=== PATIENT | male | born 1970 | race Caucasian/White ===

== ENCOUNTER 2016-07-17 17:38 | Emergency (ER) | payer OTHER ==
[2016-07-17 18:54] VITALS: BP 131/75
--- NOTE | 2016-07-17 19:39 | UC ---
HPI Febrile Illness - HPI Summary HPI Summary: felt ill just today. Fine yesterday. Today fever to 102, body aches, headache, chills, sores on back of scalp, pilonidal cyst starting to get irritated (one prior infection requiring drainage), canker sores in mouth, dry cough. Did get a flu shot, but is on immunosuppressants so is told it "may not work". He has RA. Feels very fatigued, total body aching and malaise - History of Current Complaint Chief Complaint: UCSkin Time Seen by Provider: 07/17/16 19:30 Hx Obtained From: Patient Onset/Duration: Started Hours Ago - 10 Timing: Constant Initial Severity: Mild Current Severity: Moderate Aggravating Factors: Nothing Alleviating Factors: Nothing Associated Signs and Symptoms: Arthralgia, Chills, Cough - dry, Headache, Myalgia - diffuse, Weakness - Risk Factors Pseudomonas Risk Factors: Negative - Allergy/Home Medications Allergies/Adverse Reactions: Allergies Allergy/AdvReac Type Severity Reaction Status Date / Time Iodine Allergy Difficulty Verified 07/17/16 18:41 Breathing Home Medications: Home Medications Atorvastatin* [Lipitor*] 20 mg PO DAILY 07/17/16 [History Confirmed 07/17/16] Cetirizine* [ZyrTEC*] 10 mg PO DAILY 07/17/16 [History Confirmed 07/17/16] Cholecalciferol [Vitamin D3] 2,000 unit PO DAILY 07/17/16 [History Confirmed ] Leflunomide (NF) [Arava (NF)] 10 mg PO DAILY 07/17/16 [History Confirmed ] Lisinopril TAB* [Prinivil TAB*] 5 mg PO DAILY 07/17/16 [History Confirmed ] Multiple Vitamin [Multivitamins] 1 cap PO DAILY 07/17/16 [History Confirmed ] Naproxen TAB* [Naprosyn TAB*] 500 mg PO BID 07/17/16 [History Confirmed 07/17/16 ] Secukinumab [Cosentyx] 300 mg SC MONTHLY 07/17/16 [History Confirmed 07/17/16] PMH/Surg Hx/FS Hx/Imm Hx Previously Healthy: No - RA, on immunosuppressants Endocrine/Hematology History: Reports: Hx Diabetes Cardiovascular History: Reports: Hx Hypertension Respiratory History: Denies: Hx Asthma, Hx Chronic Obstructive Pulmonary Disease (COPD) - Surgical History Surgery Procedure, Year, and Place: gastric sleeve 2015 Infectious Disease History: No Infectious Disease History: Denies: Traveled Outside the [place] in Last 30 Days - Family History Known Family History: Negative: Respiratory Disease, Blood Disorder - Social History Occupation: Employed Full-time Lives: With Family Alcohol Use: Rare Substance Use Type: Reports: None Smoking Status (MU): Former Smoker Review of Systems Constitutional: Fever - 102 Skin: Negative Eyes: Negative ENT: Other - mouth sores, "canker sores" Respiratory: Cough Cardiovascular: Negative Gastrointestinal: Negative Genitourinary: Negative Motor: Negative Neurovascular: Negative Musculoskeletal: Myalgia Neurological: Headache Psychological: Negative All Other Systems Reviewed And Are Negative: Yes Physical Exam Triage Information Reviewed: Yes Appearance: Well-Appearing, No Pain Distress, Well-Nourished Vital Signs: Initial Vital Signs Temp 99.1 F 07/17/16 18:48 Pulse 119 07/17/16 18:48 Resp 18 07/17/16 18:48 BP 131/75 07/17/16 18:48 Pulse Ox 99 07/17/16 18:48 Vital Signs Reviewed: Yes Eye Exam: Normal Eyes: Positive: Conjunctiva Clear ENT: Positive: Hearing grossly normal, Pharynx normal, TMs normal. Negative: Pharyngeal erythema, Nasal congestion, Trismus, Muffled/hoarse voice Dental: Positive: Other: - small canker sore left upper gum; no vesicular lesions Neck exam: Normal Respiratory Exam: Normal Respiratory: Positive: Lungs clear, Normal breath sounds, No respiratory distress, No accessory muscle use Cardiovascular Exam: Normal Musculoskeletal Exam: Normal Neurological Exam: Normal Neurological: Positive: Alert, Muscle Tone Normal Psychological Exam: Normal Skin Exam: Other - two small reddened areas in occipital areas, one on each side , one has a small pustule at base of hair. No vesicular lesions. In gluteal cleft, there is a very small, tender nodule at upper cleft. No surrounding fluctuance or redness. The width of the tender nodule is about 1/3". No drainage noted. Diagnostics - Laboratory Diagnostic Studies Completed/Ordered: flu neg Course/Dx - Diagnoses Clinic Provider Diagnoses: viral syndrome; small pilonidal cyst Discharge - Discharge Plan Condition: Stable Disposition: HOME Prescriptions: Sulfamethox/Trimethoprim DS* [Bactrim DS 800/160 TAB*] 1 tab PO BID #20 tab Patient Education Materials: Pilonidal Cyst (GEN), Viral Syndrome (ED) Referrals: Kennedy Farmer MD [Primary Care Provider] -
[2016-07-17] MEDS ORDERED: Sulfamethox/Trimethoprim DS 800/160* TAB PO ONE (20:27)
== END 2016-07-17 20:36 | disposition home or self-care (01) ==
LOC: UCCORT 17:38
DX: B34.9 Viral infection, unspecified (principal); L05.91 Pilonidal cyst without abscess; I10 Essential (primary) hypertension; M06.9 Rheumatoid arthritis, unspecified; Z87.891 Personal history of nicotine dependence; Z98.84 Bariatric surgery status; Z88.8 Allergy status to other drugs, medicaments and biological substances
CPT/HCPCS: 87502; 99212; A9270-GY; G0463

== ENCOUNTER 2017-12-02 18:14 | Emergency (ER) | payer OTHER ==
--- NOTE | 2017-12-02 18:49 | UC ---
UC General HPI - HPI Summary HPI Summary: 47 yo male presents with multiple complaints that all began suddenly this morning 1) Right lower back twitching that began first this morning without known injury. 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 2 weeks ago he began a new medication called Renflexis via infusion. Currently denies headache, dizziness, vision changes, weakness, SOB, or chest pain. - History of Current Complaint Stated Complaint: RT SIDED BODY PAIN Time Seen by Provider: 12/02/17 18:48 Hx Obtained From: Patient Onset/Duration: Sudden Onset Timing: Constant Onset Severity: Severe Current Severity: Severe Pain Intensity: 9 - Allergy/Home Medications Allergies/Adverse Reactions: Allergies Allergy/AdvReac Type Severity Reaction Status Date / Time Fish Containing Products Allergy Hives Verified 12/02/17 18:49 iodine Allergy Difficulty Verified 12/02/17 18:44 Breathing Home Medications: Home Medications Cholecalciferol TAB* [Vitamin D TAB*] 2,000 units PO DAILY 12/02/17 [History Confirmed 12/02/17] Fexofenadine (NF) [Teodora 180 (NF)] 180 mg PO DAILY 12/02/17 [History Confirmed 12/02/17] Infliximab-Abda [Renflexis] 100 mg IV Q14D 12/02/17 [History Confirmed 12/02/17] Metoprolol Succinate XL TAB* [Toprol XL TAB*] 50 mg PO DAILY 12/02/17 [History Confirmed 12/02/17] metFORMIN* [Glucophage 500 MG TAB *] 500 mg PO BID 12/02/17 [History Confirmed 12/02/17] PMH/Surg Hx/FS Hx/Imm Hx - Additional Past Medical History Additional PMH: psoriatic arthritis DM2 HTN - Surgical History Surgical History: Yes Surgery Procedure, Year, and Place: gastric sleeve 2014 - Family History Known Family History: Positive: None Negative: Respiratory Disease, Blood Disorder - Social History Occupation: Employed Full-time Lives: With Family Alcohol Use: Rare Substance Use Type: None Smoking Status (MU): Former Smoker When Did the Patient Quit Smoking/Using Tobacco: 2009 Review of Systems Constitutional: Negative Skin: Negative Eyes: Negative ENT: Other - B/l jaw pain Respiratory: Negative Cardiovascular: Negative Gastrointestinal: Negative Genitourinary: Negative Motor: Negative Neurovascular: Negative Musculoskeletal: Other: - Right low back pain. Right biceps pain Neurological: Negative Psychological: Negative All Other Systems Reviewed And Are Negative: Yes Physical Exam - Summary Physical Exam Summary: GENERAL: WDWN. No pain distress. SKIN: No rashes, sores, lesions, or open wounds. HEENT: Head: AT/NC Eyes: EOMI. Conjunctiva clear without inflammation or discharge. Ears: Hearing grossly normal. TMs intact, no bulging, erythema, or edema. Nose: NTTP maxillary and frontal sinus. Throat: Posterior oropharynx without exudates, erythema, or tonsillar enlargement. Uvula midline. NECK: Supple. Nontender. No lymphadenopathy. CHEST: No accessory muscle use. Breathing comfortably and in no distress. CV: RRR. Without m/r/g. Pulses intact radial and ulnar. MSK: Right biceps held at 90deg. Unable to fully extend or flex due to pain. Strength 5/5 including dovetailer strength. ?bulge at mid bicep without definite "pop- eye muscle". No edema or obvious bony deformities. TTP B/L TMJ and with mouth opening half way. LEs: FROM and strength 5/5 NEURO: Alert. Sensations intact B/L UEs and LEs. PSYCH: Age appropriate behavior. Triage Information Reviewed: Yes Vital Signs: Vital Signs: Temp Pulse Resp BP Pulse Ox 97.6 F 119 18 162/87 99 12/02/17 18:44 12/02/17 18:44 12/02/17 18:44 12/02/17 18:44 12/02/17 18:44 Course/Dx - Course Course Of Treatment: I am unsure the cause of his multiple complaints. I feel they could be related to starting his new medication, but cannot attribute all of his symptoms to this without a further workup. Therefore, I have recommended that he go to the ER for further evaluation and likely labwork for his symptoms. Pt was agreeable to this plan and friend with him today will drive him. - Differential Dx - Multi-Symptom Provider Diagnoses: Right biceps pain. psoriatic arthritis Discharge - Sign-Out/Discharge Documenting (check all that apply): Discharge/Admit/Transfer - Discharge Plan Condition: Stable Disposition: HOME Referrals: Kennedy Farmer MD [Primary Care Provider] - Additional Instructions: Please go to the ER for further evaluation of your jaw pain, muscle pain, and sudden onset of symptoms - Billing Disposition and Condition Condition: STABLE Disposition: Home
[2017-12-02 18:52] VITALS: BP 162/87
== END 2017-12-02 19:08 | disposition home or self-care (01) ==
LOC: UCCORT 18:14
DX: M79.1 Myalgia (principal); I10 Essential (primary) hypertension; L40.50 Arthropathic psoriasis, unspecified; Z98.84 Bariatric surgery status; Z87.891 Personal history of nicotine dependence; E11.9 Type 2 diabetes mellitus without complications; Z79.84 Long term (current) use of oral hypoglycemic drugs
CPT/HCPCS: 99212; G0463

== ENCOUNTER 2019-06-11 08:30 | Emergency (ER) | payer OTHER ==
--- OUTSIDE RECORDS SUMMARY | 2019-06-11 08:40 | XMS REPORT | Continuity of Care Document ---
:1970 External Reference #:[id number] Author Name Kennedy Farmer MD (transmitted by agent of provider Cherrie Mir) Address [address] [place] [address] Care Team Providers Name Role Phone Kennedy Farmer MD - Family Care Team Information [facility] - Care Team Information [facility]id [phone] Endocrinology, Diabetes & Metabolism Mima Davila M.D. 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 Vitamin D deficiency Onset: 08/04/2014 Allergic rhinitis Onset: 08/04/2014 Type 2 diabetes mellitus Onset: 10/18/2011 Essential hypertension Onset: 10/18/2011 Hyperlipidemia Onset: 10/18/2011 Morbid obesity Onset: 10/18/2011 Tobacco user Onset: 10/18/2011 Psoriasis with arthropathy Onset: 08/28/2011 Social History Type Date Description Comments Sex Unknown ETOH Use Rarely consumes alcohol Tobacco Use Start: Unknown End: Unknown Patient is a former smoker quit 2009 Smoking Status Reviewed: 02/27/19 Patient is a former smoker quit 12/2009 Allergies, Adverse Reactions, Alerts Active Allergies Reaction Severity Comments Date Iodine 06/27/2018 Seafood 06/27/2018 Medications Active Medications SIG Qnty Indications Ordering Provider Date Daily Matt 1 by mouth every 90tabs Kennedy 06/02/2019 Multivitamin/Iron day MD Darian Tablets Jardiance 10 mg by mouth 30tabs E11.65 Kennedy 06/02/2019 10mg Tablets daily MD Darian Vitamin D3 Ultra 1 by mouth every 30caps Kennedy 02/26/2019 Strength day MD Darian 5000Unit Capsules Metformin HCL ER 2 bid 60tabs E11.9 Kennedy 11/30/2018 (Mod) MD Darian 500mg Tablets ER 24HR Trulicity use weekly, 1.5 2ml E11.9 Kennedy 10/21/2018 1.5mg/0.5ML mg MD Darian Solution Pen-Inject Montelukast Sodium 1 by mouth every 90tabs J30.9 Kennedy 10/21/2018 10mg day MD Darian Tablets Sildenafil Citrate use daily as 30tabs 09/29/2018 needed MD Darian 100mg Tablets Freestyle Lite Blood use as directed 1units 08/29/2018 Glucose Monitoring MD Darian System Device Freestyle Lite Test use 2 times a 50units 07/17/2018 day and as MD Darian Strips needed Fluconazole 1 by mouth every 5tabs Kennedy 07/02/2017 150mg day MD Darian Tablets Fluticasone 2 puffs each 16units Kennedy 01/03/2016 Propionate nare every in MD Darian 50mcg/Act the morning Suspension Metoprolol Tartrate 1 by mouth twice 60tabs I10 Kennedy 04/25/2015 a day MD Darian 50mg Tablets Atorvastatin Calcium 1 by mouth every 90tabs E78.5 Kennedy 12/29/2014 day MD Darian 20mg Tablets Naproxen 1 tab by mouth 60tabs L40.50 Kennedy 10/24/2011 500mg Tablets twice a day MD Darian Tylenol Extra 1-2 tabs by L40.50 Dianne, 10/24/2011 Strength mouth every 6 Jossy Mendez NP 500mg Tablets hours as needed Aspir-81 1 po qd 90tabs 564.00 Unknown 81mg Tablets Amlodipine Besylate 1 by mouth every Jose Roberto Dillon, day 10mg Tablets Clopidogrel Bisulfate 1 by mouth every Jose Roberto Dillon, day 75mg Tablets Irbesartan 1 by mouth every Jose Roberto Dillon, 300mg day MD Tablets Leflunomide take 1 tablet Mima Davila, 20mg every other day M.D. Tablets Immunizations CPT Code Status Date Vaccine Lot # [id number] Given 02/26/2013 Influenza Virus 3Yrs & Over 89711 Given 08/06/2012 Pneumonia Vaccine 99968 Given 04/04/2011 Influenza Virus 3Yrs & Over 33465 Given 04/19/2010 Influenza Virus 3Yrs & Over 29161 Given 11/15/2009 Tdap - Tetanus/Diptheria/Acellular Pertussis Vital Signs Date Vital Result Comment 06/02/2019 3:37pm Weight 309.00 lb BP Systolic 126 mmHg BP Diastolic 86 mmHg 02/26/2019 8:18am Weight 309.00 lb BP Systolic 132 mmHg BP Diastolic 72 mmHg Results Test Acquired Date Facility Test Result H/L Range Note Laboratory test 01/21/2019 [facility] PSA Screening 0.563 Normal 0-4.[address] ng/[place] [address] [phone] Comp Metabolic 01/21/2019 [facility] Sodium 136 mmol/L Normal 135-[address] [place] [address] [phone] Potassium 4.3 mmol/L Normal 3.5-5.0 Chloride 102 mmol/L Normal 101-111 Co2 Carbon Dioxide 23 mmol/L Normal 22-32 Anion Gap 11 mmol/L Normal 2-11 Glucose 329 mg/dL High 70-100 Blood Urea Nitrogen 10 mg/dL Normal 6-24 Creatinine 0.71 mg/dL Normal 0.67-1.17 BUN/Creatinine Ratio 14.1 Normal 8-20 Calcium 9.6 mg/dL Normal 8.6-10.3 Total Protein 6.9 g/dL Normal 6.4-8.9 Albumin 4.6 g/dL Normal 3.2-5.2 Globulin 2.3 g/dL Normal 2-4 Albumin/Globulin Ratio 2.0 Normal 1-3 Total Bilirubin 0.60 mg/dL Normal 0.2-1.0 Alkaline Phosphatase 70 U/L Normal 34-104 Alt 38 U/L Normal 7-52 Ast 20 U/L Normal 13-39 Egfr Non- 118.4 >60 Egfr 143.3 >60 2 CBC Auto 01/21/2019 [facility] White Blood 5.9 10^3/uL Normal 3.5-10.[address] [place] [address] [phone] Red Blood Count 4.87 10^6/uL Normal 4.18-5.48 Hemoglobin 14.4 g/dL Normal 14.0-18.0 Hematocrit 42 % Normal 42-52 Mean Corpuscular Volume 87 fL Normal 80-94 Mean Corpuscular Hemoglobin 30 pg Normal 27-31 Mean Corpuscular HGB Conc 34 g/dL Normal 31-36 Red Cell Distribution Width 14 % Normal 10-15 Platelet Count 186 10^3/uL Normal 150-450 Mean Platelet Volume 11.1 fL High 7.4-10.4 Abs Neutrophils 3.5 10^3/uL Normal 1.5-7.7 Abs Lymphocytes 1.7 10^3/uL Normal 1.0-4.8 Abs Monocytes 0.5 10^3/uL Normal 0-0.8 Abs Eosinophils 0.1 10^3/uL Normal 0-0.6 Abs Basophils 0.1 10^3/uL Normal 0-0.2 Abs Nucleated RBC 0.0 10^3/uL Granulocyte % 60.0 % Lymphocyte % 28.7 % Monocyte % 8.4 % Eosinophil % 2.0 % Basophil % 0.9 % Nucleated Red Blood Cells % 0.1 Laboratory test 01/21/2019 [facility] Hemoglobin A1c 8.2 % High 4.0-5.[address] (Glyco HGB) [place] [address] [phone] CRP High Sensitivity 1.15 mg/L <2.00 Homocysteine 8 mcmol/L 4 Lipid Profile 01/21/2019 [facility] Triglycerides 200 mg/dL 5 (Trig/Chol/HDL) [address] [place] [address] [phone] Cholesterol 233 mg/dL 6 HDL Cholesterol 46.4 mg/dL 7 LDL Cholesterol 147 mg/dL 8 1 Serum levels of PSA measured using the [email or web address] DXI Hybritech immunoassay should not be interpreted as absolute evidence of the presence or absence of disease. The PSA value should be used in conjunction with other pertinent clinical diagnostic procedures. A PSA value in the range of 0.1 to 0.6 ng/ml is indeterminate if being used as an indicator of recurrent or residual disease. The values obtained with different assay methods or kits cannot be used interchangeably. 2 Because ethnic data is not always readily available, this report includes an eGFR for both -Americans and non- Americans. The National Kidney Disease Education Program (NKDEP) does not endorse the use of the MDRD equation for patients that are not between the ages of 18 and 70, are , have extremes of body size, muscle mass, or nutritional status, or are non- or non-. According to the National Kidney Foundation, irrespective of diagnosis, the stage of the disease is based on the level of kidney function: Stage Description GFR(mL/min/1.73 m(2)) 1 Kidney damage with normal or decreased GFR 90 2 Kidney damage with mild decrease in GFR 60-89 3 Moderate decrease in GFR 30-59 4 Severe decrease in GFR 15-29 5 Kidney failure <15 (or dialysis) 3 Therapeutic target for the treatment of diabetes mellitus patients is <7% HBA1C, and in selective patients <6.0%. Please refer to [place] [employer] Association diabetic care guidelines for further information. 4 REFERENCE VALUE <=13 (Fasting) ADDITIONAL INFORMATION This test was developed and its performance characteristics determined by [facility] in a manner consistent with CLIA requirements. This test has not been cleared or approved by the U.S. Food and Drug Administration. Test Performed by: [address] [id number] 5 Desirable: <150 Borderline High: 150-199 High: 200-499 Very High: >500 6 Desirable: <200 Borderline High: 200-239 High: >239 7 Low: <40 Desirable: 40-60 High: >60 8 Desirable: <100 Near Optimal: 100-129 Borderline High: 130-159 High: 160-189 Very High: >189 Procedures Date Code Description Status 10/03/2018 [id number] Diabetic Retinal Eye Exam Completed Medical Devices Description No Information Available Encounters Type Date Location Provider Dx Diagnosis Office Visit 02/26/2019 [facility] Kennedy E29.1 Testicular 8:15a MD Darian hypofunction E11.65 Type 2 diabetes mellitus with hyperglycemia Office Visit 01/21/2019 8:15a [facility] Primary Kennedy Farmer Z00.01 Encounter for Care general adult medical exam w abnormal findings Z12.11 Encounter for screening for malignant neoplasm of colon Z12.5 Encounter for screening for malignant neoplasm of prostate E11.9 Type 2 diabetes mellitus without complications 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 B37.2 Candidiasis of skin and nail Assessments Date Code Description Provider 06/02/2019 E11.65 Type 2 diabetes mellitus with hyperglycemia Kennedy Farmer MD 02/26/2019 E29.1 Testicular hypofunction Kennedy Farmer MD 02/26/2019 E11.65 Type 2 diabetes mellitus with hyperglycemia Kennedy Farmer MD 01/21/2019 Z00.01 Encounter for general adult medical Kennedy Farmer MD examination with abnormal findings 01/21/2019 Z12.11 Encounter for screening for malignant Kennedy Farmer MD neoplasm of colon 01/21/2019 Z12.5 Encounter for screening for malignant Kennedy Farmer MD neoplasm of prostate 01/21/2019 E11.9 Type 2 diabetes mellitus without Kennedy Farmer MD complications 01/21/2019 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 with 01/21/2019 B37.2 Candidiasis of skin and nail Kennedy Farmer MD Plan of Treatment Future Appointment(s):10/07/2019 10:00 am - ROGELIO Alfred at [facility] Primary Care09/2019 9:00 am - Kennedy Farmer MD at [facility] Primary Care06/02/2019 - Kennedy Farmer MDE11.65 Type 2 diabetes mellitus with hyperglycemiaNew Medication:Jardiance 10 mg - 10 mg by mouth daily Functional Status Description No Information Available Mental Status Description No Information Available Referrals Refer to Dr Reason for Referral Status Appt Date [facility] Sent 09/14/2019 [address] [place] [address] [phone]
--- OUTSIDE RECORDS SUMMARY | 2019-06-11 08:40 | XMS REPORT | Continuity of Care Document ---
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 Medicine Problems Active Problems Provider Date Electrocardiogram abnormal Jose Roberto Dillon M.D., Onset: 04/02/2012 [facility] Hyperlipidemia Jose Roberto Dillon M.D., Onset: 11/07/2010 [facility] Type II diabetes mellitus uncontrolled Jose Roberto Dillon M.D., Onset: [facility] Essential hypertension Jose Roberto Dillon M.D., Onset: 11/07/2010 [facility] Social History Type Date Description Comments Sex Unknown Tobacco Use Start: Unknown End: Unknown Quit 12/2009 Smoking Status Reviewed: 04/14/19 Quit 12/2009 ETOH Use Rarely consumes alcohol Allergies, Adverse Reactions, Alerts Active Allergies Reaction Severity Comments Date Iodine 07/28/2010 Seafood 07/28/2010 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 Medications Active Medications SIG Qnty Indications Ordering Provider Date Atorvastatin Calcium 1 by mouth every 30tabs E78.5 Burnette, Estrella 10/03/2018 80mg day Evita, MSN, Tablets WORK ORDER CLERK Amlodipine Besylate Take 1 Tablet By 30tabs I25.10 Burnette, Estrella 10/03/2018 10mg Mouth Every Day YAW Jama, Tablets WORK ORDER CLERK I10 Irbesartan Take 1 Tablet By 90tabs I10 Burnette, Estrella 09/12/2018 300mg Tablets Mouth Every Day YAW Jama, WORK ORDER CLERK Clopidogrel Bisulfate Take 1 Tablet By 90tabs Burnette, Estrella 09/12/2018 75mg Mouth Every Day YAW Jama, WORK ORDER CLERK Tablets Kennedy Valverde, 1.5mg/0.5ML MD Solution Pen-Inject Prednisone start at 6 tabs by Unknown 10mg Tablets mouth every day and decrease by one tab each day until gone Orencia Once Every 4 Weeks Unknown 250mg Solution Rec Glipizide ER TK 1 T PO qd Unknown 10mg Tablets ER 24HR Fluconazole 1 by mouth once can Unknown 150mg Tablets repeat in 1 week Tramadol HCL 1 by mouth every 6 Unknown 50mg Tablets hour as needed pain Fexofenadine HCL 1 by mouth at night Estrella Burnette 180mg YAW Jama, WORK ORDER CLERK Tablets Leflunomide 1 by mouth every Unknown 20mg Tablets day Fluticasone Propionate 2 spray to each Unknown nare every day 50mcg/Act Suspension Viagra 1 tab by mouth as Unknown 100mg Tablets needed Metformin HCL 1 tab twice a day Unknown 1000mg Tablets Metoprolol Tartrate 1 by mouth twice a I10 Estrella Burnette 50mg day YAW Jama, WORK ORDER CLERK Tablets Naproxen 1 po bid 60tabs Unknown 500mg Tablets Aspirin 1 po qd Unknown 81mg Tablets Immunizations Description No Information Available Vital Signs Date Vital Result Comment 04/14/2019 7:33am BP Systolic Sitting Left Arm 150 mmHg BP Diastolic Sitting Left Arm 88 mmHg Heart Rate 87 /min Respiratory Rate 18 /min Height 75.50 inches 6'3.50" Weight 308.00 lb BMI (Body Mass Index) 38.0 kg/m2 BSA (Body Surface Area) 2.65 m2 [place] body weight in kilograms 90 kg O2 Saturation Level with Exercise 98 % 10/03/2018 11:09am BP Systolic Sitting Left Arm 132 mmHg BP Diastolic Sitting Left Arm 75 mmHg Heart Rate 80 /min Respiratory Rate 18 /min Height 75.50 inches 6'3.50" Weight 316.00 lb BMI (Body Mass Index) 39.0 kg/m2 BSA (Body Surface Area) 2.68 m2 [place] body weight in kilograms 90 kg O2 % BldC Oximetry 97 % Results Description No Information Available Procedures Description No Information Available Medical Devices Description No Information Available Encounters Type Date Location Provider Dx Diagnosis Office Visit 04/14/2019 Cardiology Office YomairaEstrella I25.10 Athscl heart 7:40a Evita, YAW, disease of [place] WORK ORDER CLERK coronary artery w/o ang pctrs I10 Essential (primary) hypertension E78.5 Hyperlipidemia, unspecified E11.65 Type 2 diabetes mellitus with hyperglycemia Assessments Date Code Description Provider 04/14/2019 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 No changes.I10 Essential (primary) hypertensionComments:Monitor.E78.5 Hyperlipidemia, unspecifiedComments:Will obtain the most recent blood work.E11.65 Type 2 diabetes mellitus with hyperglycemiaComments:Recent studies have shown CAD protection and improved HgA1c on Jardiance.AllFollow up:Follow up visit in six months. Functional Status Functional Condition Comment Date Status Independent with all ADL's Active Glasses Active Independent with all IADL's Active Mental Status Description No Information Available Referrals Description No Information Available
--- OUTSIDE RECORDS SUMMARY | 2019-06-11 08:40 | XMS REPORT | Summary of Care ---
:1970 Author Organization [facility] Address [address] [place] [id number] Care Team Providers Name Role Phone Kennedy Farmer MD Primary Care Provider Reason for Visit Reason Comments Follow-up Medication (Routine) Status Reason Specialty Diagnoses / Referred By Contact Referred To Procedures Contact Authorized Rheumatology Diagnoses Arthropathic psoriasis, unspecified Rheumatology Procedures [place] ABATACEPT INJECTION Medicine Private Practice [facility] [address] [place] [phone] Encounter Details Date Type Department Care Team Description 05/14/2019 Office Visit [facility] Rheumatology Ronald Davila MD Psoriatic arthritis (Primary Dx); [address] [place] [address] Psoriasis; [place] [address] [address] Floor High risk medication use [phone] [place] [address] [phone] Allergies Active Allergy Reactions Severity Noted Date Comments Cats 11/06/2012 Dogs 11/06/2012 Dust Mite Extract 11/06/2012 Iodinated Diagnostic Agents Other (See Comments) 11/02/2016 Pollen Extract 11/06/2012 Seafood Other (See Comments) 11/02/2016 documented as of this encounter (statuses as of 05/14/2019) Medications Medication Sig Dispensed Refills Start Date End Date Status lisinopril-hydrochlorot Take 1 tablet 0 Active hiazide by mouth daily. (PRINZIDE,ZESTORETIC) 20-25 MG per tablet metoprolol (LOPRESSOR) Take 50 mg by 0 Active 50 MG tablet mouth 2 (two) times daily. aspirin 81 MG tablet Take 81 mg by 0 Active mouth daily. Multiple Take 1 tablet 0 Active Vitamins-Minerals by mouth daily. (MULTIVITAMIN WITH MINERALS) tablet cetirizine (ZYRTEC) 10 Take 10 mg by 0 Active MG tablet mouth daily. fluticasone (VERAMYST) 2 sprays by 0 Active 27.5 MCG/SPRAY nasal Nasal route spray daily. metformin (GLUCOPHAGE) Take 1 tablet 60 tablet 11 03/10/2013 Active 1000 MG tablet by mouth 2 (two) times daily with meals. metformin (GLUCOPHAGE) TAKE ONE TABLET 60 tablet 0 01/04/2014 Active 1000 MG tablet BY MOUTH TWICE A DAY WITH MEALS fexofenadine (REJI) Take 180 mg by 0 Active 180 MG tablet mouth daily cyclobenzaprine 0 12/03/2017 Active (FLEXERIL) 10 MG tablet JANUMET XR 100-1000 MG TK 1 T PO QD 11 11/25/2017 Active TB24 Tofacitinib Citrate Take 11 mg by 30 tablet 5 05/29/2018 Active (XELJANZ XR) 11 MG TB24 mouth daily levocetirizine (XYZAL) Take 5 mg by 0 Active 5 MG tablet mouth every evening irbesartan (AVAPRO) 300 0 11/02/2018 Active MG tablet TRULICITY 1.5 MG/0.5ML 0 10/21/2018 Active injection pen 1.5 mg/0.5 mL clopidogrel (PLAVIX) 75 0 11/02/2018 Active MG tablet amlodipine (NORVASC) 10 0 11/02/2018 Active MG tablet atorvastatin (LIPITOR) 0 11/02/2018 Active 80 MG tablet sildenafil (REVATIO) 20 Take 20 mg by 0 Active MG tablet mouth as needed fluconazole (DIFLUCAN) Take 1 tablet 7 tablet 5 11/06/2018 Active 150 MG tablet by mouth once a week leflunomide (ARAVA) 20 TAKE 1 TABLET 30 tablet 3 04/20/2019 Active MG tabletIndications: BY MOUTH DAILY Psoriatic arthritis Etanercept 50 MG/ML Inject 50 mg 4 Syringe 5 05/14/2019 06/13/2019 Active Subcutaneous Solution into the skin Auto-injector every 7 (seven) days documented as of this encounter (statuses as of 05/14/2019) Active Problems Problem Noted Date High risk medication use 11/22/2016 Psoriasis 11/22/2016 Psoriatic arthritis 11/22/2016 Diabetes mellitus Obesity (BMI 30-39.9) Hypertension Hyperlipidemia LDL goal < 100 documented as of this encounter (statuses as of 05/14/2019) Social History Tobacco Use Types Packs/Day Years Used Date Former Smoker Cigarettes 2 20 Quit: 12/30/2009 Smokeless Tobacco: Never Used Tobacco Cessation: Counseling Given: No Comments: quit 2.5 years ago Alcohol Use Drinks/Week oz/Week Comments Yes occasional Sex Assigned at Date Recorded Not on file Job Start Date Occupation Industry Not on file Not on file Not on file Travel History Travel Start Travel End No recent travel history available. documented as of this encounter Last Filed Vital Signs Vital Sign Reading Time Taken Comments Blood Pressure 157/90 05/14/2019 10:08 AM EST Pulse 94 05/14/2019 10:08 AM EST Temperature 36.3 05/14/2019 10:08 AM EST C (97.3 F) Respiratory Rate 16 05/14/2019 10:08 AM EST Oxygen Saturation 95% 05/14/2019 10:08 AM EST Inhaled Oxygen Concentration - - Weight 140.6 kg (310 lb) 05/14/2019 10:08 AM EST Height 188 cm (6' 2") 05/14/2019 10:08 AM EST Body Mass Index 39.8 05/14/2019 10:08 AM EST documented in this encounter Progress Notes Ronald Davila MD - 05/14/2019 10:00 AM EST Subjective: Patient ID: Alhaji Michaud is a 49 y.o. male. HPI This is a 49-year-old white male with history of hypertension, high cholesterol , type 2 diabetes, psoriatic arthritis came in for follow up. I first time saw him on 11/22/2016 at which time he was referred for second opinion rheumatology consult. The patient has been diagnosed with psoriasis since age 14 to 15. The rash is located on both legs, arms, scalp, sometime to the point that bleeding. The patient was not on any medications. About 10 years ago the patient started to have arthritis, mainly at the knees, elbows and fingers. Initially tried sulfasalazine that did not work. He was on methotrexate, but developed fatigue and oral ulcer. That was discontinued. He tried Enbrel plus Arava that worked for 3 to 4 months and lost effect, and then switched to Humira plus Arava that worked for about 6 months. Then, he was on Remicade infusion for about 1 year. At that time, he felt great. Allthe psoriasis has been gone and arthritis has been gone, but over time, the Remicade lost its effectiveness as well. Then, he switched to Cimzia doubt which did not work and he also tried Simponi subcu and infusion. That over time also lost effectiveness. He tried Otezla oral medication which did not help with arthritis at all. In fact, he noticed some skin rashes coming back. Also tried Stelarawhich was not very effective for psoriatic arthritis. Basically, all the biologics control the skindisease now, but none of them really control arthritis completely. Currently, he is on Cosentyx 300mg subcu every 4 weeks. Initially did a loading dose, but he has been on the injection for 4 to 5 months or so, but he still has pain mainly at both elbows, MCP and DIP joint, left more than right andknee pain. He required naproxen as needed to help with the pain. In 2006 he had gastric sleeve surgery and lost about 100 pounds which helped with high blood pressure, diabetes really well. He continued to have chronic fatigue, but that seems also intermittent symptoms. He said he did see Dermatology, had a skin biopsy of the left arm, confirmed psoriasis. On 02/28/2017, the patient came in for follow up. Overall his psoriasis is control with Cosentyx 300 mg subcu every 4 weeks, but he still has arthralgia, swelling of fingers, MCP joint, elbows, and otherjoint. That seemed to get worse with damp weather or playing the guitar too much. He is taking naproxen 500 mg twice a day on the bad days and taking prednisone 10 mg, which did help. He continued Arava 10 mg daily. Because of his liver function, he tried to avoid a higher dose of Arava and Tylenol. I reviewed the labs with him. ALT 41. Otherwise CMP, CBC, ESR, LORENZO, rheumatoid factor, CCP antibodies, LORENZO specificities were all normal. On 07/04/2017, the patient came in for follow up. Overall psoriasis controlled with Cosentyx. Only has small spots on the legs, otherwise, no active skin rash. Arthritis also better. Still has some swelling of the hands, MCP joints. He played base guitar, noticed left hand, 4th digit, loss of strength. In between, he had a viral infection. He skipped 2 weeks of Cosentyx. Otherwise tolerated Cosentyx 300 mg subcu every 4 weeks. The patient continued patient continued leflunomide 10 mg daily, naproxen 500 mg twice a day, and prednisone 5 to 10 mg as needed, some days he does need prednisone. On 11/01/2017, the patient came in for follow up. Since last visit, he noticed more psoriasis on his legs. More joints pain and swelling of both hands, lost strength. He felt Cosentyx lost effectiveness. Discussed about other biologics. He wanted to try Remicade infusion again. He continued Arava 10mg daily, Naproxen 500mg bid, Prednisone 5-10mg as needed. Last Cosentyx dose was on 2017. He has one episode of URI. On 11/21/2017, the patient came in for follow up. The patient continued to have diffuse joint pain, swelling in hands and the legs. Also noticed more psoriasis on his legs. His insurance denied Remicade, but agree with biosimilar Renflexis. Based on his body weight, will do Renflexis 700 mg IV infusion with Tylenol 650 mg p.o. as premedication. On 12/20/2017, the patient came in for follow up. The patient tolerated the first Renflexis infusion,but 2 weeks after developed severe muscle contraction at multiple places. He went to the ER. He saw Dr. Wilde on December 04, 2017. Dr. Wilde decided to hold off the infusion. He noticed psoriasis came back on his legs, and also continued to have bilateral hands. MCP joints are swollen, stiff, andpainful, especially when he plays with guitar. He has to use prednisone up to 20 mg which does helpwith arthritis pain. We will apply for authorization for Remicade infusion. I think he had side effects with the biosimilar Renflexis. I prescribed prednisone 10 mg as needed. The patient is aware of the side effects of steroid use, including avascular necrosis. On 12/27/2017, the patient came in for follow up. His insurance approved Remicade infusion. Still haveboth hands and wrists swelling and pain. Needed oral prednisone 10mg daily for a few days. Remicade 700mg iv. Tolerated well. On 01/30/2018, the patient came in for follow up. Still have diffused joints pain at hands, knees. Legs psoriasis seems recurred. Still needed Prednisone 10mg daily. Tolerated Remicade 700mg iv. On 02/27/2018, the patient came in for follow up. The patient was scheduled for Remicade infusion, buthe decided to not have infusion because he did not notice any significant improvement in terms of skin disease and arthritis. He has multiple psoriasis of both legs and arms. Also has diffused joint pain at bilateral hands, PIP, MCP, elbows, knees, and feet. MTP joints there hurt. He continued prednisone 10 mg daily, which does help with arthritis pain a little bit. We discussed all the DMARDS.He failed the methotrexate, sulfasalazine, and the leflunomide. He also failed Enbrel, Humira, Cimzia, Simponi, Stelara, Otezla, Cosentyx, Remicade. Most medication works for a short period of time and lose effectiveness. We discussed other new medications. He agreed to try Taltz 160 mg subcu as loading dose and then 80 mg subcu every 2 weeks for 3 months, followed by 80 mg subcu every 4 weeks. Side effects explained in detail. He agreed to give it a try. On 05/29/2018, the patient came in for follow up. He tried Taltz 160 mg subcu loading and 80 mg subcuevery 2 weeks for 3 months, is followed by every 4 weeks. So far, no side effects. Most of psoriasis cleared up, but he still has a few episodes of inflammatory arthritis, most upper extremities hands, wrists, elbows, shoulders, but sometimes has bilateral feet and toes painful. He is taking leflunomide 10 mg daily, which I recommended to increase to 20 mg daily since his liver functions were normal on last visit. He does not feel the Taltz controls arthritis enough. Will consider switching to Xeljanz XR 11 mg daily. Side effects explained in detail. He is also using prednisone as needed and naproxen. He is still able to play guitar most of the time. On 11/06/2018, the patient came in for follow up. The patient come in because of flare-up of arthritis, both hands, wrists, elbows, shoulders, and right foot second to fourth toes are swollen, tender. He does not feel the Xeljanz really helps because he also noticed both legs psoriasis coming back. He continued leflunomide 20 mg daily for arthritis pain. We went through all the biologics and disease modifying antirheumatic drugs again. He agree switch from Xeljanz to Humira 40 mg subcu every 2 weeks. Patient's 3 years' younger brother recently from heart attack. Patient also have chest pain and diabetes. He saw Cardiology, did cardiac cath, found to have LAD 80% stenosis. Stents placed 2 month ago. Also, Interventional Cardiology increased statin to 80 mg daily. I am concerned autoimmune necrotizing myopathy side effects, although patient does not really have muscle weakness and tender. Patient noticed whenever he is on immunosuppressant, he will get fungal infections, but that isresponsive to fluconazole 150 mg, he usually takes it once a week; I renewed that. He just had blood work done with his primary care doctor. I would like to have that results faxed over. On 03/13/2019, the patient came in for follow up. Both psoriasis and diffused arthritis were active. He tried Humira 40mg sc q 2 weeks. Not effective at all. His insurance proved Orencia infusion.Tolerated first dose Orencia 1000mg infusion. He continued Leflunomide 20mg daily. He noticed skin bleedingbecause he is on Plavix. On 03/27/2019, the patient came in for follow up. He tolerated first dose infusion. No side effects. Tolerated second dose Orencia 1000mg iv. He continued Leflunomide 20mg daily and Prednisone 10mg daily. Psoriasis and psoriatic arthritis were about the same. On 05/14/2019, the patient came in for follow up. He had another Orencia infusion on 04/16/2019. Dictation on: 05/14/2019 10:35 AM by: RONALD DAVILA [ [id number]] Review of Systems Per HPI. Review of complete ROS is negative. Past Medical History: Diagnosis Date Diabetes mellitus Hyperlipidemia LDL goal < 100 Hypertension Obesity (BMI 30-39.9) Psoriatic arthritis Past Surgical History: Procedure Laterality Date APPENDECTOMY GALLBLADDER SURGERY Family History Problem Relation Age of Onset Diabetes type II Maternal Grandmother Diabetes type II Mother Diabetes Paternal Uncle Social History Tobacco Use Smoking status: Former Smoker Packs/day: 2.00 Years: 20.00 Pack years: 40.00 Types: Cigarettes Last attempt to quit: 12/30/2009 Years since quittin.3 Smokeless tobacco: Never Used Tobacco comment: quit 2.5 years ago Substance Use Topics Alcohol use: Yes Comment: occasional Drug use: No Cats; Dogs; Dust mite extract; Iodinated diagnostic agents; Pollen extract; and Seafood Current Outpatient Medications Medication Sig Dispense Refill amlodipine (NORVASC) 10 MG tablet aspirin 81 MG tablet Take 81 mg by mouth daily. atorvastatin (LIPITOR) 80 MG tablet cetirizine (ZYRTEC) 10 MG tablet Take 10 mg by mouth daily. clopidogrel (PLAVIX) 75 MG tablet cyclobenzaprine (FLEXERIL) 10 MG tablet fexofenadine (REJI) 180 MG tablet Take 180 mg by mouth daily fluconazole (DIFLUCAN) 150 MG tablet Take 1 tablet by mouth once a week 7 tablet 5 fluticasone (VERAMYST) 27.5 MCG/SPRAY nasal spray 2 sprays by Nasal route daily. irbesartan (AVAPRO) 300 MG tablet JANUMET XR 100-1000 MG TB24 TK 1 T PO QD 11 leflunomide (ARAVA) 20 MG tablet TAKE 1 TABLET BY MOUTH DAILY 30 tablet 3 levocetirizine (XYZAL) 5 MG tablet Take 5 mg by mouth every evening lisinopril-hydrochlorothiazide (PRINZIDE,ZESTORETIC) 20-25 MG per tablet Take 1 tablet by mouth daily. metformin (GLUCOPHAGE) 1000 MG tablet Take 1 tablet by mouth 2 (two) times daily with meals. 60 tablet 11 metformin (GLUCOPHAGE) 1000 MG tablet TAKE ONE TABLET BY MOUTH TWICE A DAY WITH MEALS 60 tablet 0 metoprolol (LOPRESSOR) 50 MG tablet Take 50 mg by mouth 2 (two) times daily. Multiple Vitamins-Minerals (MULTIVITAMIN WITH MINERALS) tablet Take 1 tablet by mouth daily. sildenafil (REVATIO) 20 MG tablet Take 20 mg by mouth as needed Tofacitinib Citrate (XELJANZ XR) 11 MG TB24 Take 11 mg by mouth daily 30 tablet 5 TRULICITY 1.5 MG/0.5ML injection pen 1.5 mg/0.5 mL No current facility-administered medications for this visit. Objective: Physical Exam Visit Vitals BP 157/90 Pulse 94 Temp 36.3 C (97.3 F) (Tympanic) Resp 16 Ht 1.88 m (6' 2") Wt (!) 140.6 kg (310 lb) SpO2 95% BMI 39.80 kg/m HEENT: no facial erythema, hearing grossly intact. Extremities no cyanosis, clubbing or edema. Neuroexam: AAO*3, no focal deficits. Muscle strength preserved. Skin exam: most of psoriasis at both legsand hands. Joint exam: diffused joints hands PIP, MCP, wrists, elbows, shoulders, hips knees, anklesfeet were tenderness. Data reviewed: I personally reviewed old chart, labs in [facility], note and other clinical date from her PCP office. Office Visit on 03/27/2019 Component Date Value Ref Range Status Quantiferon-TB Gold Plus 03/27/2019 Negative Negative Final Comment: No interferon-gamma response to M.tuberculosis antigens was detected. Infection with M. tuberculosis is unlikely. A single negative result does not exclude infection with M. TB. In patients at high risk for M. tuberculosis infection, a 2nd test should be considered in accordance with the 2017 ATS/IDSA/CDC Clinical Practice Guidelines for Diagnosis of Tuberculosis in Adults and Children [Pj JIMENEZ et. al. Clin Infec.Dis 2017 64(2):111-115] TB1 Ag minus Nil Result 03/27/2019 0.03 [IU]/mL Final TB2 Ag minus Nil Result 03/27/2019 0.02 [IU]/mL Final Mitogen Nil Result 03/27/2019 >10.00 [IU]/mL Final Nil Result 03/27/2019 0.03 [IU]/mL Final Sed Rate - ESR 03/27/2019 7 <15 mm/hr Final Albumin 03/27/2019 4.4 3.5 - 5.2 g/dL Final Bilirubin, Total 03/27/2019 0.3 <1.2 mg/dL Final Calcium 03/27/2019 9.2 8.6 - 10.0 mg/dL Final Chloride 03/27/2019 101 98 - 107 mmol/L Final Creatinine 03/27/2019 0.73 0.70 - 1.20 mg/dL Final Glucose 03/27/2019 245* 70 - 140 mg/dL Final Alkaline Phosphatase 03/27/2019 67 40 - 129 U/L Final Potassium 03/27/2019 4.2 3.4 - 5.1 mmol/L Final Total Protein 03/27/2019 6.9 6.4 - 8.3 g/dL Final Sodium 03/27/2019 136 136 - 145 mmol/L Final AST/SGO 03/27/2019 17 <40 U/L Final Blood Urea Nitrogen 03/27/2019 10 6 - 20 mg/dL Final Osmolality, Max 03/27/2019 289 275 - 300 mosm/kg Final BUN/Cre Ratio 03/27/2019 14 Final Bicarbonate 03/27/2019 24 22 - 29 mmol/L Final ALT/SGP 03/27/2019 20 <41 U/L Final Anion Gap 03/27/2019 11 8 - 15 mmol/L Final A/G Ratio 03/27/2019 1.8 Final GFR Non 2008 CDK-* 03/27/2019 >90 >60 mL/min/ 1.73m2 Final GFR 2008 CKD-EPI 03/27/2019 >90 >60 mL/min/ 1.73m2 Final Assessment: - Psoriasis. Active. - Psoriatic arthritis. Not in remission on Cosentyx 300mg sc q 4 weeks. Failed SSZ, MTX, Enbrel, Humira. Remicade, Otezla, Stelara, Cimzia. Simponi. Developed severe muscle cramps with Renflexis. Started Remicade 700mg iv in 12/2017. Did not improved after 2 months. Switched to Taltz sc. Not effective.switched to Xeljanze in 05/2018. No effective. Switched to Humria 40mg sc q 2 weeks in 2018. Not effective. Orencia 1000mg iv since 02/2019. - HTN. - DM2 - Hyperlipidemia. - obesity. S/P sleeve surgery. - CAD. LAD 80% stenosis. S/P stent in 08/2018. - frequent fungal infection with immunosuppressant. Responsive to fluconazole 150mg weekly. Plan: - Alhaji was seen today for follow-up. Diagnoses and all orders for this visit: Psoriatic arthritis Psoriasis High risk medication use - discussed DMARDs and biologics. He agreed to try Enbrel sureclick 50mg sc q week. - Discontinue Xeljanz XR 11mg daily. Not effective. - off Taltz. Not effective. - discontinue Humria 40mg sc q 2 weeks. Not effective. - discontinue Orencia. - continue Leflunomide to 20mg daily. - continue Naproxen 500mg bid. - prednisone 10mg as needed for flare up.E-prescribed. - short term and prison side effects of steroid use including but limited to AVN was discussed with the patient in detail. - Activities as tolerated. - RV in 2-3 months; above findings, analysis and plan were all discussed with the patient and his questions were answered as much as possible. documented in this encounter Plan of Treatment Date Type Specialty Care Team Description 07/30/2019 Office Visit Rheumatology Ronald Davila MD [address] [id number] 09/14/2019 Office Visit Endocrinology Jose Carlos Moses MD [address] [place] [address] Name Type Priority Associated Diagnoses Order Schedule Sedimentation rate, Lab Routine Psoriatic arthritis 1 Occurrences starting automated Psoriasis 05/14/2019 until High risk medication 11/14/2019 use CBC and Differential Lab Routine Psoriatic arthritis 1 Occurrences starting Psoriasis 05/14/2019 until High risk medication 11/14/2019 use Comprehensive Metabolic Lab Routine Psoriatic arthritis 1 Occurrences starting Panel Psoriasis 05/14/2019 until High risk medication 11/14/2019 use Quantiferon-TB Gold Plus Lab Routine Psoriatic arthritis 1 Occurrences starting Psoriasis 05/14/2019 until High risk medication 11/12/2019 use Health Maintenance Due Date Last Done Comments MMR Vaccines (1 of 1 - Standard 1971 series) Pneumococcal Vaccine: Pediatrics 01/29/1976 (0 to 5 Years) and At-Risk Patients (6 to 64 Years) (1 of 1 - PPSV23) DTaP,Tdap,and Td Vaccines (1 - 1977 Tdap) HIV Screening 1983 Varicella Vaccines (1 of 2 - 13+ 1983 2-dose series) Hepatitis B Vaccines (1 of 3 - 1989 Risk 3-dose series) Influenza Vaccine 03/24/2019 Pneumococcal Vaccine: 65+ Years (1 2035 of 2 - PCV13) HIB Vaccines Aged Out No longer eligible based on patient's age to complete this topic Hepatitis A Vaccines Aged Out No longer eligible based on patient's age to complete this topic IPV Vaccines Aged Out No longer eligible based on patient's age to complete this topic documented as of this encounter Goals Goal Patient Goal Associated Recent Patient-Stated? Author Type Problems Progress Blood Pressure < Blood Pressure 157/90 No Larsen, 130/80 (05/14/2019 ROGELIO Fleming 10:08 AM EST) HEMOGLOBIN A1C < Result 5.6 No Larsen, 7.0 Component (03/09/2013 ROGELIO Fleming 11:20 AM EDT) LDL CALC,LDL Result 183 No Larsen, CHOLESTEROL,LDLC Component (12/09/2012 ROGELIO Fleming HOLESTEROL,LDL 5:16 PM EDT) DIRECT,LDLCHOLES TEROL,DIRECT < 100 documented as of this encounter Results Not on filedocumented in this encounter Visit Diagnoses Diagnosis Psoriatic arthritis - Primary Psoriatic arthropathy Psoriasis Other psoriasis High risk medication use Encounter for long-term (current) use of other medications documented in this encounter
[2019-06-11 08:44] VITALS: BP 145/78
--- NOTE | 2019-06-11 09:45 | UC ---
Skin Complaint HPI - HPI Summary HPI Summary: 49 yo male with DM as well as psoriasis/psoriatic arthritis presents with painful rash left lower leg no fever no trauma no hx of similar rash took keflex he had left over - History of Current Complaint Chief Complaint: UCLowerExtremity Time Seen by Provider: 06/11/19 09:28 Stated Complaint: POS CELULITUS Hx Obtained From: Patient Onset/Duration: Gradual Onset, Lasting Days - 2 Timing: Constant Onset Severity: Moderate Current Severity: Moderate Pain Intensity: 6 Pain Scale Used: 0-10 Numeric Location: Discrete Character: Pruritus - slight, Pain, Redness, Painful Aggravating Factor(s): Touch, Other - wt bearing Alleviating Factor(s): Nothing Associated Signs & Symptoms: Positive: Rash - Allergy/Home Medications Allergies/Adverse Reactions: Allergies Allergy/AdvReac Type Severity Reaction Status Date / Time Fish Containing Products Allergy Hives Verified 06/11/19 08:43 infliximab-abda Allergy See Comment Verified 06/11/19 08:44 [From Renflexis] iodine Allergy Difficulty Verified 06/11/19 08:43 Breathing Home Medications: Home Medications Clopidogrel TAB* [Plavix TAB*] 75 mg PO DAILY 06/11/19 [History Confirmed ] amLODIPine TAB* [Norvasc 5 mg TAB*] 10 mg PO DAILY 06/11/19 [History Confirmed 06/11/19] predniSONE TAB* [Deltasone 10 MG TAB*] 10 mg PO DAILY PRN 06/11/19 [History Confirmed 06/11/19] PMH/Surg Hx/FS Hx/Imm Hx Previously Healthy: Yes - psoriatic arthritis Endocrine History: Diabetes, Dyslipidemia - Surgical History Surgical History: Yes Surgery Procedure, Year, and Place: gastric sleeve 2014 - Family History Known Family History: Positive: Hypertension Negative: Respiratory Disease, Blood Disorder - Social History Alcohol Use: Rare Substance Use Type: None Smoking Status (MU): Former Smoker When Did the Patient Quit Smoking/Using Tobacco: 2009 Review of Systems All Other Systems Reviewed And Are Negative: Yes Constitutional: Positive: Negative Skin: Positive: Rash Eyes: Positive: Negative ENT: Positive: Negative Respiratory: Positive: Negative Cardiovascular: Positive: Negative Gastrointestinal: Positive: Negative Genitourinary: Positive: Negative Motor: Positive: Negative Neurovascular: Positive: Negative Musculoskeletal: Positive: Negative Neurological: Positive: Negative Psychological: Positive: Negative Physical Exam Triage Information Reviewed: Yes Appearance: Well-Appearing, No Pain Distress, Well-Nourished, Ill-Appearing Vital Signs: Initial Vital Signs Temp 98.0 F 06/11/19 08:40 Pulse 93 06/11/19 08:40 Resp 16 06/11/19 08:40 BP 145/78 06/11/19 08:40 Pulse Ox 98 06/11/19 08:40 Vital Signs Reviewed: Yes Eyes: Positive: Conjunctiva Clear ENT: Positive: Hearing grossly normal. Negative: Nasal congestion, TMs normal Dental Exam: Normal Neck: Positive: Supple Respiratory: Positive: Lungs clear, Normal breath sounds, No respiratory distress, No accessory muscle use Cardiovascular: Positive: RRR, No Murmur Musculoskeletal: Positive: ROM Intact, No Edema Neurological: Positive: Alert Psychological Exam: Normal Skin Exam: Other - moderate to severe psoriatic plaques/ purpura left lower ext Images Front/Back of Body, Lg (Ogle): 1 - non blanching purpuric rash/no ulcerations Course/Dx - Diagnoses Provider Diagnosis: Vasculitis Discharge ED - Sign-Out/Discharge Documenting (check all that apply): Patient Departure All imaging exams completed and their final reports reviewed: No Studies - Discharge Plan Condition: Stable Disposition: HOME Prescriptions: Cephalexin CAP* [Keflex CAP*] 500 mg PO QID #28 cap Patient Education Materials: [facility] (ED) Referrals: Kennedy Farmer MD [Primary Care Provider] - Additional Instructions: blood work pending I suggest you see your land appraiser first available appt I suspect you have a VASCULITIS as opposed to a cellulitis this needs follow up and could potentially need to be biopsied - Billing Disposition and Condition Condition: STABLE Disposition: Home
[2019-06-11 15:34] LABS: Albumin 4.4 g/dL (3.2-5.2); Calcium 9.1 mg/dL (8.6-10.3); Potassium 4.4 mmol/L (3.5-5.0); Total Bilirubin 0.5 mg/dL (0.2-1.0)
[2019-06-11 15:40] LABS: ABS Basophils 0.1 10^3/ul (0-0.2); ABS Lymphocytes 1.3 10^3/ul (1.0-4.8); ABS Monocytes 0.7 10^3/ul (0-0.8); ABS Neutrophils 5.5 10^3/ul (1.5-7.7); Albumin/Globulin Ratio 1.7 (1-3); BUN/Creatinine Ratio 12.2 (8-20); EGFR Non-African American 112.4 (>60); Eosinophil % 0.5 %; Globulin 2.6 g/dL (2-4); Hematocrit 41 % (42-52); Hemoglobin 14.2 g/dL (14.0-18.0); INR 0.92 (0.82-1.09); Lymphocyte % 17.6 %; Mean Corpuscular HGB Conc 35 g/dL (31-36); Mean Corpuscular Hemoglobin 30 pg (27-31); Mean Corpuscular Volume 86 fL (80-94); Mean Platelet Volume 11.2 fL (7.4-10.4); Nucleated Red Blood Cells % 0.1; Platelet Count 203 10^3/uL (150-450); Red Blood Count 4.79 10^6 /uL (4.18-5.48); Red Cell Distribution Width 14 % (10-15); White Blood Count 7.6 10^3/uL (3.5-10.8)
[2019-06-11 18:34] LABS: Erythrocyte Sed Rate 25 mm/Hr (0-14)
--- NOTE | 2019-06-12 11:13 | UC ---
- Progress Note Progress Note: Reviewed blood work as available. Includes increased sed rate (25mm/hr), inc glucose 357mg/dl (with expected lower read na / cl). RN to call pt. Encourage f/u pcp as advised. Mr. Michaud should recheck blood glucose, pay close attention to blood glucose levels especially while feeling unwell Go directly to the ED if any worse or new problems. Course/Dx - Diagnoses Provider Diagnoses: Vasculitis Discharge ED - Sign-Out/Discharge Documenting (check all that apply): Post-Discharge Follow Up All imaging exams completed and their final reports reviewed: No Studies - Discharge Plan Condition: Stable Disposition: HOME Prescriptions: Cephalexin CAP* [Keflex CAP*] 500 mg PO QID #28 cap Patient Education Materials: [facility] (ED) Referrals: Kennedy Farmer MD [Primary Care Provider] - Additional Instructions: blood work pending I suggest you see your computer assistant first available appt I suspect you have a VASCULITIS as opposed to a cellulitis this needs follow up and could potentially need to be biopsied - Billing Disposition and Condition Condition: STABLE Disposition: Home
== END 2019-06-11 09:56 | disposition home or self-care (01) ==
LOC: UCCORT 08:30
DX: I77.6 Arteritis, unspecified (principal); E11.9 Type 2 diabetes mellitus without complications; Z79.84 Long term (current) use of oral hypoglycemic drugs; E78.5 Hyperlipidemia, unspecified; L40.50 Arthropathic psoriasis, unspecified; Z88.8 Allergy status to other drugs, medicaments and biological substances; Z91.013 Allergy to seafood; Z87.891 Personal history of nicotine dependence
CPT/HCPCS: 36415; 80053; 85025; 85610; 85652; 99212; G0463